=== PATIENT | female | born 1965 | race Caucasian/White ===

== ENCOUNTER 2017-08-19 08:15 | Emergency (ER) | payer BC ==
--- NOTE | 2017-08-19 08:42 | EDM.PDOC ---
ED HPI GENERAL MEDICAL PROBLEM - General Chief Complaint: General Stated Complaint: BREAST PAIN Time Seen by Provider: 08/19/17 08:26 Source of Information: Reports: Patient, RN Notes Reviewed - History of Present Illness INITIAL COMMENTS - FREE TEXT/NARRATIVE: 52-year-old lady comes in with left breast pain. This started yesterday, worse today. This is primarily around the nipple area of her left breast. States she does have history of biopsy about 4 months ago. States a "clip" was placed at the area of the biopsy to serve as a marker. She is concerned that that might be moving around. There has been no drainage. No fever chills or other unusual symptoms. Left Breast Pain Score (Numeric/FACES): 7 - Related Data Allergies Allergy/AdvReac Type Severity Reaction Status Date / Time No Known Allergies Allergy Verified 08/19/17 08:22 Home Meds: Home Meds Wellbutrin. 1 oz PO DAILY 08/19/17 [History] Past Medical History - Past Surgical History Female Surgical History: Reports: Breast Biopsy Social & Family History - Tobacco Use Smoking Status *Q: Current Every Day Smoker Years of Tobacco use: 25 Packs/Tins Daily: 0.3 - Recreational Drug Use Recreational Drug Use: No ED ROS GENERAL - Review of Systems Review Of Systems: See Below Constitutional: Denies: Fever, Chills HEENT: Denies: Throat Pain Respiratory: Reports: Other (Left breast discomfort). Denies: Shortness of Breath Cardiovascular: Denies: Chest Pain GI/Abdominal: Reports: No Symptoms Musculoskeletal: Reports: No Symptoms Skin: Reports: Erythema (Localized erythema left nipple of left breast) Neurological: Reports: No Symptoms ED EXAM, GENERAL - Physical Exam Exam: See Below General Appearance: Alert, No Apparent Distress Head: No: Facial Swelling Neck: Supple, Full Range of Motion Respiratory/Chest: No Respiratory Distress, Lungs Clear, Other (The nipple area of her left breast is inflamed, mildly swollen and tender, breast otherwise does not show any other area of redness swelling or tenderness.) Cardiovascular: Regular Rate, Rhythm Extremities: Normal Inspection Neurological: Alert, Oriented Skin Exam: Warm, Dry Course - Vital Signs Last Recorded V/S: Last Vital Signs Temp 98.4 F 08/19/17 08:23 Pulse 95 08/19/17 08:23 Resp 17 08/19/17 08:23 BP 153/91 H 08/19/17 08:23 Pulse Ox 96 08/19/17 08:23 Departure - Departure Time of Disposition: 08:39 Disposition: Home, Self-Care 01 Condition: Fair Clinical Impression: Cellulitis Qualifiers: Site of cellulitis: unspecified site Qualified Code(s): L03.90 - Cellulitis, unspecified - Discharge Information Instructions: Cellulitis, Adult, [id number] Referrals: PCP,None [Primary Care Provider] - Forms: ED Department Discharge Additional Instructions: moist heat as discussed 4 to 5 times daily for the next several days until symptoms resolving. Septra DS antibioitic 2 times daily for 1 week or until gone, Keflex antibiotic 500 mg 4 times daily for 1 week or until gone. Tylenol or ibuprofen as needed for discomfort. Follow up clinic in 2 to 3 days for recheck, call tomorrow morning for appt.
== END 2017-08-19 08:56 | disposition home or self-care (01) ==
LOC: JD.ED 08:15
DX: N61.0 Mastitis without abscess (principal); F17.210 Nicotine dependence, cigarettes, uncomplicated; Z79.899 Other long term (current) drug therapy
CPT/HCPCS: 99283